=== PATIENT | female | born 1990 | race Caucasian/White ===

== ENCOUNTER → 2016-09-08 | Outpatient (CLI) | payer BC | LOC: BMCIMAGING 15:39 | PROVIDERS: ATTEND Emergency Medicine | DX: R50.9 Fever, unspecified (principal); R05 Cough ==

== ENCOUNTER 2016-09-20 04:38 | Emergency (ER) | payer BC ==
[2016-09-20 04:43] VITALS: RESP 18
[2016-09-20] MEDS ORDERED: NS 1,000 ML IV ONE ×2 (04:57→07:31)
[2016-09-20] MEDS ORDERED: ONDANSETRON 4 MG/2 ML VIAL IVP ONE ×2 (04:57→07:31)
--- NOTE | 2016-09-20 04:57 | EDPHY ---
H & P Stated Complaint: NVD since x3 days, denies abd pain; on immunosuppressants HPI/ROS: HPI CHIEF COMPLAINT: NAUSEA, VOMITING, DIARRHEA HISTORY OF PRESENT ILLNESS: This patient very pleasant 26-year-old female, significant past medical history for rheumatoid arthritis, Pott's disease, and Beto-Danlos, presents emergency room with 3 days of nausea, vomiting, diarrhea. She describes her vomiting is nonbilious nonbloody, describes her diarrhea as non bloody watery. No fever no abdominal pain. 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 She tells me she came to the emergency room this morning as she is having ongoing nausea vomiting she denies chest pain or shortness of breath. States she had diarrhea today. She feels as if she is getting dehydrated cannot tolerate p. o. is requesting IV fluids. Denies fever. 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 Exam Constitutional triage nursing summary reviewed, vital signs reviewed, awake/ alert. Eyes normal conjunctivae and sclera, EOMI, PERRLA. HENT normal inspection, atraumatic, moist mucus membranes, no epistaxis, neck supple/ no meningismus, no raccoon eyes. Respiratory clear to auscultation bilaterally, normal breath sounds, no respiratory distress, no wheezing. Cardiovascular rate normal, regular rhythm, no murmur, no edema, distal pulses normal. Gastrointestinal soft, non-tender, no rebound, no guarding, normal bowel sounds, no distension, no pulsatile mass. Genitourinary no CVA tenderness. Musculoskeletal no midline vertebral tenderness, full range of motion, no calf swelling, no tenderness of extremities, no meningismus, good pulses, neurovascularly intact. Skin pink, warm, & dry, no rash, skin atraumatic. Neurologic awake, alert and oriented x 3, AAOx3, moves all 4 extremities equally, motor intact, sensory intact, CN II-XII intact, normal cerebellar, normal vision, normal speech. Psychiatric normal mood/affect. Heme/Lymph/Immune no lymphadenopathy. Differential Diagnosis: includes but is not limited to in a particular order dehydration, electrolyte abnormality, acute nausea vomiting and diarrhea, dehydration Medical Decision Making: plan for this patient is to have an IV established obtain fluid bolus, IV Zofran for nausea control will check abdominal blood work including CBC, LFTs, lipase, urinalysis and test. And re- evaluate after fluids and nausea medicine.If she could provide a stool sample will send stool. Re-evaluation: 0633: patient here in emergency room does feel better after IV Zofran, IV fluids, IV Ativan. Her nausea is well controlled. She denies chest pain or shortness of breath. She has not had any vomiting here. Blood work is reassuring. Specifically electrolytes appropriate no high white count, urinalysis clean. She has no abdominal pain chest pain or shortness of breath. Her abdomen is benign. She is agreeable and discharged. I have given her prescription for Phenergan. She understands this medication can make her sleepy. She did p.o. challenge with a glass of water without vomiting. 0737: this patient attempted to p.o. challenge again and states that she felt very nauseous and vomited. She is requesting another L fluid more Zofran. I have ordered her 1 more L and 4 mg Zofran she will then p. o. challenge after this and does well she may go home. If she feels p.o. challenge need to be admitted to the hospital. Source: Patient - Personal History LMP (Females 10-55): 8-14 Days Ago Current Tetanus/Diphtheria Vaccine: Yes Current Tetanus Diphtheria and Acellular Pertussis (TDAP): Yes Tetanus Vaccine Date: <10 years - Medical/Surgical History Hx Asthma: No Hx Chronic Respiratory Disease: No Hx Diabetes: No Hx Cardiac Disease: No Hx Renal Disease: No Hx Cirrhosis: No Hx Alcoholism: No Hx HIV/AIDS: No Hx Splenectomy or Spleen Trauma: No Other PMH: Depression, PTSD, abd surg (double ureter repaired), postural orthostatic tachycardia synd, Beto-Danlos, PCOS, hypothyroid, migraines, RA, nerve surgery R wrist. - Social History Smoking Status: Never smoked Constitutional: Initial Vital Signs Temperature (C) 36.7 C 09/20/16 04:41 Heart Rate 91 09/20/16 04:41 Respiratory Rate 18 09/20/16 04:41 Blood Pressure 122/74 H 09/20/16 04:41 O2 Sat (%) 94 09/20/16 04:41 O2 Delivery Mode Room Air Allergies/Adverse Reactions: metformin Allergy (Verified 09/20/16 04:45) Vomiting Home Medications: Medication Instructions Recorded Thyroid,Pork [ARMOUR THYROID] 90 mg PO DAILY 05/07/12 lamOTRIGine [Lamictal] 200 mg PO HS 10/21/13 Acet/Caffeine/Buta Fioricet 2 tab PO Q6H PRN 12/04/14 [Fioricet (*)] Diclofenac Sodium [Voltaren 75 MG 75 mg PO BID 12/04/14 (*)] Haloperidol [Haldol 1 MG (*)] 4 - 6 mg PO Q4-6PRN PRN 12/04/14 LORazepam [Ativan (*)] 1 mg PO BID 12/04/14 Omeprazole Magnesium [Prilosec Otc] 20 mg PO DAILY 12/04/14 Ondansetron Odt [Zofran Odt 4 mg 4 mg PO BID 12/04/14 (*)] Prazosin HCl [Minipress 5mg (*)] 5 mg PO HS 12/04/14 Tocilizumab [ACTEMRA] 162 mg IV Q7D 12/04/14 Methotrexate Sodium [Trexall] 10 mg PO Q7D 03/22/16 Cholecalciferol Vit D3 [Vitamin D3 2,000 units PO DAILY 03/24/16 (*)] Cholecalciferol Vit D3 [Vitamin D3 50,000 unit PO TUTH 03/24/16 (*)] LORazepam [Ativan (*)] 1 mg PO DAILY PRN 03/24/16 Levomefolate/Algal Oil 1 cap PO DAILY 03/24/16 [[place]-Algal Oil 15 mg Capsule] Loratadine [Claritin 10 mg] 10 mg PO HS 03/24/16 [place]-3 Fatty Acids [Fish Oil 1000 2,000 mg PO DAILY 03/24/16 mg (*)] Ondansetron Odt [Zofran Odt 4 mg 4 mg PO Q4 PRN 03/24/16 (*)] Prazosin HCl [Minipress 1mg (*)] 1 mg PO HS 03/24/16 diphenhydrAMINE [Benadryl 50 MG 50 mg PO DAILY PRN 03/24/16 (*)] lamOTRIGine [Lamictal] 150 mg PO HS 03/24/16 Loperamide HCl [Imodium 2 mg (*)] 2 mg PO QID PRN #0 cap 04/02/16 Ondansetron HCl [Zofran] 4 mg PO Q4-6PRN PRN #10 tablet 09/20/16 Promethazine HCl [Phenergan 12.5mg 12.5 mg PO BID #10 tablet 09/20/16 tab] Medical Decision Making - Data Points Laboratory Results: Laboratory Results 09/20/16 05:09 09/20/16 05:09 09/20/16 05:09 Smear Review By Urbano ALVARES MD Medications Given: Discontinued Medications Sodium Chloride (Ns) 1,000 mls @ 0 mls/hr IV ONCE ONE PRN Reason: Wide Open Stop: 09/20/16 04:58 Last Admin: 09/20/16 05:12 Dose: 1,000 mls Sodium Chloride (Ns) 1,000 mls @ 0 mls/hr IV ONCE ONE PRN Reason: Wide Open Stop: 09/20/16 07:32 Last Admin: 09/20/16 07:37 Dose: 1,000 mls Lorazepam (Ativan Injection) 0.5 mg IVP EDNOW ONE Stop: 09/20/16 05:39 Last Admin: 09/20/16 05:45 Dose: 0.5 mg Lorazepam (Ativan Injection) 1 mg IVP EDNOW ONE Stop: 09/20/16 06:15 Last Admin: 09/20/16 06:13 Dose: 1 mg Ondansetron HCl (Zofran) 4 mg IVP EDNOW ONE Stop: 09/20/16 04:58 Last Admin: 09/20/16 05:15 Dose: 4 mg Ondansetron HCl (Zofran) 4 mg IVP EDNOW ONE Stop: 09/20/16 07:32 Last Admin: 09/20/16 07:34 Dose: 4 mg Promethazine HCl (Phenergan Rectal) 12.5 mg LA EDNOW ONE Stop: 09/20/16 08:02 Last Admin: 03/11/17 08:12 Dose: 12.5 mg Departure - Departure Disposition: Home, Routine, Self-Care Clinical Impression: Vomiting and diarrhea Condition: Good Instructions: Acute Nausea and Vomiting (ED), Acute Diarrhea (ED) Additional Instructions: 1. return emergency room if develops any worsening symptoms includes he developed abdominal pain, fever and persistent vomiting. 2.Please advance her diet very slowly clear fluids next 24 hours. Referrals: Odessa Vázquez MD [Primary Care Provider] - As per Instructions Prescriptions: Ondansetron HCl [Zofran] 4 mg PO Q4-6PRN PRN #10 tablet PRN Reason: Nausea/Vomiting, Use 1st Promethazine HCl [Phenergan 12.5mg tab] 12.5 mg PO BID #10 tablet
[2016-09-20 05:22] LABS: ADD DIFF? YES; ADD MORPH? NO; ADD SCAN? NO; ATYPICAL LYMPHOCYTE FLAG 50 (0-99); FRAGMENT RBC FLAG 0 (0-99); HEMATOCRIT 40.7 % (38.0-47.0); HEMOGLOBIN 14.1 g/dL (12.6-16.3); LEFT SHIFT FLG 0 (0-99); LIPEMIA HEMOLYSIS FLAG 90 (0-99); MEAN CELL HEMOGLOBIN 31.3 pg (27.9-34.1); MEAN CELL HEMOGLOBIN CONCENTR. 34.6 g/dL (32.4-36.7); MEAN CELL VOLUME 90.4 fL (81.5-99.8); MEAN PLATELET VOLUME 9.8 fL (8.7-11.7); PLATELET CLUMPS FLAG 10 (0-99); PLATELET COUNT 188 10^3/uL (150-400); RED CELL DISTRIBUTION WIDTH 11.7 % (11.5-15.2)
[2016-09-20] MEDS ORDERED: LORazepam 2 MG/ML INJ IVP ONE ×2 (05:38→06:14)
[2016-09-20 05:49] LABS: COLOR YELLOW; LEUKOCYTE ESTERASE,URINE NEGATIVE (NEGATIVE); NITRITE,URINE NEGATIVE (NEGATIVE)
[2016-09-20 06:08] LABS: PLATELET ESTIMATE ADEQUATE (ADEQ)
[2016-09-20] MEDS ORDERED: LORazepam 2 MG/ML INJ ONE (06:09)
[2016-09-20 06:26] LABS: ALANINE AMINOTRANSFERASE 48 IU/L (9-52); ALBUMIN 4.4 g/dL (3.5-5.0); ALKALINE PHOSPHATASE 41 IU/L (38-126); ANION GAP 13 mEq/L (8-16); ASPARTATE AMINOTRANSFERASE 36 IU/L (14-46); BILIRUBIN,TOTAL 0.9 mg/dL (0.1-1.4); BILIRUBIN-CONJUGATED 0.4 mg/dL (0.0-0.5); BILIRUBIN-UNCONJUGATED 0.5 mg/dL (0.0-1.1); CARBON DIOXIDE 22 mEq/l (22-31); CHLORIDE 104 mEq/L (97-110); CREATININE 0.7 mg/dL (0.6-1.0); GLOMERULAR FILTRATION RATE > 60; GLUCOSE 88 mg/dL (70-100); SODIUM 139 mEq/L (134-144); TOTAL PROTEIN 7.2 g/dL (6.3-8.2)
[2016-09-20] MEDS ORDERED: ONDANSETRON 4 MG/2 ML VIAL ONE (07:30)
[2016-09-20] MEDS ORDERED: PROMETHAZINE HCL 12.5 MG SUPPR PR ONE (08:01)
[2016-09-20 08:16] VITALS: PULSE 82; TEMP 98.4
[2016-09-20 08:54] VITALS: BP 117/93; O2SAT 96
== END 2016-09-20 08:53 | disposition home or self-care (01) ==
DX: R19.7 Diarrhea, unspecified (principal); R11.10 Vomiting, unspecified
CPT/HCPCS: 96374; J2405

== ENCOUNTER → 2016-10-07 | Outpatient (CLI) | payer BC | LOC: BMCIMAGING 10:24 | PROVIDERS: ATTEND Physician Assistant | DX: S69.91XA Unspecified injury of right wrist, hand and finger(s), initial encounter (principal); W19.XXXA Unspecified fall, initial encounter ==

== ENCOUNTER 2017-01-16 21:19 | Emergency (ER) | payer BC, OTHER ==
[2017-01-16 21:31] VITALS: BP 138/99; PULSE 92; RESP 16; TEMP 98.4; O2SAT 97
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
== END 2017-01-17 04:10 | disposition home or self-care (01) ==
LOC: EEVIPCON 21:19
DX: T74.21XA Adult sexual abuse, confirmed, initial encounter (principal); Y07.9 Unspecified perpetrator of maltreatment and neglect

== ENCOUNTER 2017-02-05 07:37 | Inpatient (IN) | payer BC ==
--- NOTE | 2017-02-05 07:45 | EDPHY ---
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 She thinks might have got sick from 1 of her kids. 2 days ago she started having some loose stool and diarrhea without blood or melena. Last night at 11:00 p.m. started having multiple episodes of nausea and vomiting. Symptoms severe. Unable to keep her usual medications down. Not associated with significant abdominal pain or fever. No recent foreign travel. REVIEW OF SYSTEMS: Eye: no change in vision ENT: no sore throat Cardiac: no chest pain or syncope Pulmonary: no cough or SOB Abdomen: HPI Musculoskeletal: no back pain Skin: no rash Neuro: no headache, her migraines are well controlled at this point in time Constitutional: no fever : no urinary symptoms or vaginal bleeding A comprehensive 10 point review of systems is otherwise negative aside from elements mentioned in the history of present illness. PAST MEDICAL HISTORY: Admission history and physical dated 03/21/[address] Gilliland personally reviewed. Emergency department visit dated 09/20/[address] De La Cruz personally reviewed. Includes migraine headaches, orthostatic hypotension syndrome, polycystic ovarian syndrome. PTSD and depression. Postural orthostatic tachycardia syndrome, arthritis, right wrist nerve surgery, ureter surgery. Social history: No alcohol General Appearance: Alert and conversant, cooperative. Eyes: No scleral icterus. ENT, Mouth: Dry mucous membranes Respiratory: Normal respiratory effort, breath sounds equal, lungs are clear to auscultation. Cardiovascular: Regular rate and rhythm. Gastrointestinal: Abdomen is soft and non tender. No tenderness over McBurney' s point. Neurological: Alert and oriented x3. Normally conversant. Face symmetric, normal movement and sensation in all extremities. Skin: Warm and dry, no rashes. Musculoskeletal: No peripheral edema and no joint swelling. Psychiatric: Not agitated. Emergency Department course/MDM: Patient presents with nausea and vomiting and a benign abdominal exam but is clinically dehydrated. She says that IV Zofran typically works well for her. Haloperidol is on her medication list but is a p.r.n. and she has not taken it recently. Zofran 4 mg IV, electrolytes and test, 2 L IV normal saline. 830: Results discussed, still has some nausea, requesting Phenergan IV which is ordered 12.5 mg. 1235: Additional nausea, Phenergan 12.5 mg IV. 1332: Still symptomatic, admit to hospitalist service. 1420: 10 mg IV Reglan. Smoking Status: Never smoked Constitutional: Initial Vital Signs Temperature (C) 36.9 C 02/05/17 07:41 Heart Rate 109 H 02/05/17 07:41 Respiratory Rate 15 02/05/17 07:41 Blood Pressure 113/89 H 02/05/17 07:41 O2 Sat (%) 94 02/05/17 07:41 O2 Delivery Mode Room Air Allergies/Adverse Reactions: metformin Allergy (Verified 02/05/17 07:40) Vomiting Home Medications: Medication Instructions Recorded lamoTRIgine [Lamictal] 200 mg PO HS 10/21/13 Acet/Caffeine/Buta Fioricet 2 tab PO Q6H PRN 12/04/14 [Fioricet (*)] Diclofenac Sodium [Voltaren 75 MG 75 mg PO BID PRN 12/04/14 (*)] Haloperidol [Haldol 1 MG (*)] 4 - 6 mg PO DAILY PRN 12/04/14 Omeprazole Magnesium [Prilosec Otc] 20 mg PO DAILY 12/04/14 Prazosin HCl [Minipress 5mg (*)] 5 mg PO HS 12/04/14 Tocilizumab [ACTEMRA] 162 mg IV HOPE 12/04/14 LORazepam [Ativan (*)] 1 mg PO TID PRN 03/24/16 Levomefolate/Algal Oil 1 cap PO DAILY 03/24/16 [[place]-Algal Oil 15 mg Capsule] Loratadine [Claritin 10 mg] 10 mg PO HS 03/24/16 diphenhydrAMINE [Benadryl 50 MG 50 mg PO DAILY PRN 03/24/16 (*)] lamoTRIgine [Lamictal] 150 mg PO HS 03/24/16 Ergocalciferol [Vitamin D2 (*)] 50,000 unit PO TUTH 02/05/17 Levothyroxine [Synthroid 100 mcg 100 mcg PO DAILY06 02/05/17 (*)] Ondansetron Odt [Zofran Odt 4 mg 4 mg PO DAILY PRN 02/05/17 (*)] Prazosin HCl [Minipress] 2 mg PO HS 02/05/17 traMADol [Ultram 50 mg (*)] 50 - 100 mg PO Q6HRS PRN 02/05/17 Medical Decision Making Differential Diagnosis: Differential considered including but not limited to appendicitis, UTI, PID, ectopic, gastroenteritis. - Data Points Laboratory Results: Laboratory Results 02/05/17 07:50 02/05/17 07:50 02/05/17 02/05/17 02/05/17 07:50 07:50 07:50 WBC 11.91 10^3/uL H 10^3/uL (3.80-9.50) RBC 4.83 10^6/uL 10^6/uL (4.18-5.33) Hgb 15.2 g/dL g/dL (12.6-16.3) Hct 43.6 % % (38.0-47.0) MCV 90.3 fL fL (81.5-99.8) MCH 31.5 pg pg (27.9-34.1) MCHC 34.9 g/dL g/dL (32.4-36.7) RDW 11.4 % L % (11.5-15.2) Plt Count 208 10^3/uL 10^3/uL (150-400) MPV 9.8 fL fL (8.7-11.7) Neut % (Auto) 90.1 % H % (39.3-74.2) Lymph % (Auto) 3.8 % L % (15.0-45.0) [place] % (Auto) 4.8 % % (4.5-13.0) Eos % (Auto) 0.7 % % (0.6-7.6) Baso % (Auto) 0.3 % % (0.3-1.7) Nucleat RBC Rel Count 0.0 % % (0.0-0.2) Absolute Neuts (auto) 10.74 10^3/uL H 10^3/uL (1.70-6.50) Absolute Lymphs (auto) 0.45 10^3/uL L 10^3/uL (1.00-3.00) Absolute Monos (auto) 0.57 10^3/uL 10^3/uL (0.30-0.80) Absolute Eos (auto) 0.08 10^3/uL 10^3/uL (0.03-0.40) Absolute Basos (auto) 0.04 10^3/uL 10^3/uL (0.02-0.10) Absolute Nucleated RBC 0.00 10^3/uL 10^3/uL (0-0.01) Immature Gran % 0.3 % % (0.0-1.1) Immature Gran # 0.03 10^3/uL 10^3/uL (0.00-0.10) Sodium 143 mEq/L mEq/L (134-144) Potassium 4.1 mEq/L mEq/L (3.5-5.2) Chloride 107 mEq/L mEq/L (97-110) Carbon Dioxide 19 mEq/l L mEq/l (22-31) Anion Gap 17 mEq/L H mEq/L (8-16) BUN 14 mg/dL mg/dL (7-23) Creatinine 0.7 mg/dL mg/dL (0.6-1.0) Estimated GFR > 60 Glucose 123 mg/dL H mg/dL (70-100) Calcium 9.5 mg/dL mg/dL (8.5-10.4) Beta HCG, Qual NEGATIVE Medications Given: Discontinued Medications Sodium Chloride (Ns) 1,000 mls @ 0 mls/hr IV EDNOW ONE; Wide Open PRN Reason: Protocol Stop: 02/05/17 07:51 Last Admin: 02/05/17 08:05 Dose: 1,000 mls Sodium Chloride (Ns) 1,000 mls @ 0 mls/hr IV EDNOW ONE; Wide Open PRN Reason: Protocol Stop: 02/05/17 07:51 Last Admin: 02/05/17 09:02 Dose: 1,000 mls Metoclopramide HCl (Reglan Injection) 10 mg IVP EDNOW ONE Stop: 02/05/17 14:21 Last Admin: 02/05/17 14:57 Dose: 10 mg Ondansetron HCl (Zofran) 4 mg IVP EDNOW ONE Stop: 02/05/17 07:51 Last Admin: 02/05/17 08:05 Dose: 4 mg Promethazine HCl (Phenergan) 12.5 mg IVP EDNOW ONE Stop: 02/05/17 08:33 Last Admin: 07/27/17 08:36 Dose: 12.5 mg Promethazine HCl (Phenergan) 12.5 mg IVP EDNOW ONE Stop: 02/05/17 12:37 Last Admin: 02/05/17 12:40 Dose: 12.5 mg Departure - Departure Disposition: [facility] Acute Clinical Impression: Dehydration, Vomiting and diarrhea Condition: Good
[2017-02-05] MEDS ORDERED: NS 1,000 ML IV ONE ×2 (07:50)
[2017-02-05] MEDS ORDERED: ONDANSETRON 4 MG/2 ML VIAL IVP ONE (07:50)
[2017-02-05 08:06] LABS: % IMMATURE GRANULYOCYTES 0.3 % (0.0-1.1); ABSOLUTE IMMATURE GRANULOCYTES 0.03 10^3/uL (0.00-0.10); ADD DIFF? NO; ADD MORPH? NO; ADD SCAN? NO; ATYPICAL LYMPHOCYTE FLAG 0 (0-99); FRAGMENT RBC FLAG 0 (0-99); HEMATOCRIT 43.6 % (38.0-47.0); HEMOGLOBIN 15.2 g/dL (12.6-16.3); LEFT SHIFT FLG 0 (0-99); LIPEMIA HEMOLYSIS FLAG 90 (0-99); MEAN CELL HEMOGLOBIN 31.5 pg (27.9-34.1); MEAN CELL HEMOGLOBIN CONCENTR. 34.9 g/dL (32.4-36.7); MEAN CELL VOLUME 90.3 fL (81.5-99.8); MEAN PLATELET VOLUME 9.8 fL (8.7-11.7); PLATELET CLUMPS FLAG 0 (0-99); PLATELET COUNT 208 10^3/uL (150-400); RED BLOOD CELL COUNT 4.83 10^6/uL (4.18-5.33); RED CELL DISTRIBUTION WIDTH 11.4 % (11.5-15.2)
[2017-02-05 08:26] LABS: ANION GAP 17 mEq/L (8-16); CALCIUM 9.5 mg/dL (8.5-10.4); CARBON DIOXIDE 19 mEq/l (22-31); CHLORIDE 107 mEq/L (97-110); CREATININE 0.7 mg/dL (0.6-1.0); GLOMERULAR FILTRATION RATE > 60; GLUCOSE 123 mg/dL (70-100); POTASSIUM 4.1 mEq/L (3.5-5.2); SODIUM 143 mEq/L (134-144)
[2017-02-05] MEDS ORDERED: PROMETHAZINE HCL 25 MG/ML INJ IVP ONE ×2 (08:32→12:36)
[2017-02-05] MEDS ORDERED: METOCLOPRAMIDE 10 MG/2 ML VIAL IVP ONE (14:20)
[2017-02-05] MEDS ORDERED: ONDANSETRON DISINTEGRATING 4 MG TAB PO PRN (16:19)
[2017-02-05] MEDS ORDERED: ACETAMINOPHEN 325 MG TAB PO PRN (16:19)
[2017-02-05] MEDS ORDERED: diphenhydrAMINE 50 MG CAP PO PRN (16:25)
[2017-02-05] MEDS ORDERED: NON-FORMULARY NEW DRUG (Omeprazole Magnesium [Prilosec Otc] 20 MG) PO SCH (16:30)
[2017-02-05] MEDS: NS 1,000 ML IV SCH (16:56)
[2017-02-05 17:11] LABS: ALBUMIN 4.4 g/dL (3.5-5.0); BILIRUBIN-CONJUGATED 0.2 mg/dL (0.0-0.5); BILIRUBIN-UNCONJUGATED 0.8 mg/dL (0.0-1.1); MAGNESIUM 1.6 mg/dL (1.6-2.3); TOTAL PROTEIN 7.9 g/dL (6.3-8.2)
[2017-02-05] MEDS: PROMETHAZINE HCL 25 MG/ML INJ IVP PRN (17:46)
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
[2017-02-05] MEDS ORDERED: NON-FORMULARY NEW DRUG (Lamotrigine [Lamictal] 150 MG) PO SCH (21:00)
[2017-02-05] MEDS ORDERED: PRAZOSIN HCL 2 MG PO SCH (21:00)
[2017-02-05] MEDS ORDERED: NON-FORMULARY NEW DRUG (Loratadine [Claritin 10 Mg] 10 MG) PO SCH (21:00)
[2017-02-05] MEDS ORDERED: lamoTRIgine 100 MG TAB PO SCH (21:00)
[2017-02-05] MEDS ORDERED: NON-FORMULARY NEW DRUG (Lamotrigine [Lamictal] 200 MG) PO SCH (21:00)
[2017-02-05] MEDS: lamoTRIgine 100 MG TAB PO SCH (21:38)
[2017-02-05] MEDS: traMADol 50 MG TAB PO PRN (21:39)
[2017-02-05] MEDS: PRAZOSIN HCL 5 MG CAP PO SCH (21:40)
[2017-02-05] MEDS: CETIRIZINE 10 MG TAB PO SCH (21:40)
[2017-02-05] MEDS: PRAZOSIN HCL 1 MG CAP PO SCH (21:40)
[2017-02-06] MEDS: PROMETHAZINE HCL 25 MG/ML INJ IVP PRN ×4 (02:27→20:55)
[2017-02-06] MEDS: NS 1,000 ML IV SCH ×2 (02:27→12:59)
[2017-02-06 04:49] LABS: % IMMATURE GRANULYOCYTES 0.6 % (0.0-1.1); ABSOLUTE IMMATURE GRANULOCYTES 0.02 10^3/uL (0.00-0.10); ADD DIFF? NO; ADD MORPH? NO; ADD SCAN? NO; ATYPICAL LYMPHOCYTE FLAG 0 (0-99); FRAGMENT RBC FLAG 0 (0-99); HEMATOCRIT 35.4 % (38.0-47.0); HEMOGLOBIN 12.1 g/dL (12.6-16.3); LEFT SHIFT FLG 10 (0-99); LIPEMIA HEMOLYSIS FLAG 90 (0-99); MEAN CELL HEMOGLOBIN 31.7 pg (27.9-34.1); MEAN CELL HEMOGLOBIN CONCENTR. 34.2 g/dL (32.4-36.7); MEAN CELL VOLUME 92.7 fL (81.5-99.8); MEAN PLATELET VOLUME 9.7 fL (8.7-11.7); PLATELET CLUMPS FLAG 0 (0-99); PLATELET COUNT 162 10^3/uL (150-400); RED BLOOD CELL COUNT 3.82 10^6/uL (4.18-5.33); RED CELL DISTRIBUTION WIDTH 11.7 % (11.5-15.2)
[2017-02-06 05:17] LABS: ANION GAP 9 mEq/L (8-16); CALCIUM 8.2 mg/dL (8.5-10.4); CARBON DIOXIDE 20 mEq/l (22-31); CHLORIDE 111 mEq/L (97-110); CREATININE 0.7 mg/dL (0.6-1.0); GLOMERULAR FILTRATION RATE > 60; GLUCOSE 82 mg/dL (70-100); POTASSIUM 3.6 mEq/L (3.5-5.2); SODIUM 140 mEq/L (134-144)
[2017-02-06] MEDS: LEVOTHYROXINE 100 MCG TAB PO SCH (05:17)
[2017-02-06] MEDS: traMADol 50 MG TAB PO PRN (07:38)
[2017-02-06] MEDS: PANTOPRAZOLE SODIUM 40 MG TAB PO SCH (07:38)
[2017-02-06] MEDS ORDERED: ACET/CAFFEINE/BUTA FIORICET 1 EACH TAB PO PRN (09:36)
[2017-02-06] MEDS: LORazepam 1 MG TAB PO PRN ×2 (12:56→18:39)
[2017-02-06] MEDS: ONDANSETRON 4 MG/2 ML VIAL IVP PRN (12:57)
[2017-02-06] MEDS ORDERED: ALTEPLASE 2 MG VIAL IVP PRN (18:17)
--- NOTE | 2017-02-06 18:17 | HOSPPROG ---
Hospitalist Progress Note Assessment/Plan: 26-year-old admitted with intractable nausea and vomiting. She has several medical problems including pot syndrome, PTSD, ovarian cysts, patient is new to me today. - Intractable nausea and vomiting. Patient improved slightly in the morning and then reported persistent nausea despite the use of Phenergan and said even water was causing abdominal burning. I have increased her PPI medication placed her NPO except for ice chips and sips of water and essentially put at bowel rest. Due to the persistence of the problem a 2 way abdomen has been ordered. - metabolic acidosis: This is improved with IV hydration. - Leukocytosis: Again this is slowly improving. There is no active signs of infection. Plan: 2 way abdomen continue IV hydration and p. o. and increase pain medication as needed. A PICC line will be ordered as the Phenergan is eliminating IV access. Subjective: Reports the nausea is persistent despite the use of Phenergan. Objective: Vital Signs Temp Pulse Resp BP Pulse Ox 36.9 C 69 18 128/68 H 93 02/06/17 16:00 02/06/17 16:00 02/06/17 16:00 02/06/17 16:00 02/06/17 16:00 Laboratory Results 02/06/17 04:24 02/06/17 04:24 02/05/17 02/06/17 02/07/17 05:59 05:59 05:59 Intake Total 2861 1425 Output Total 300 Balance 2861 1125 - Time Spent With Patient Time Spent with Patient: greater than 35 minutes Time Spent with Patient: Greater than 35 minutes spent on this patients care, greater than 50% of time spent counseling, educating, and coordinating care regarding the above mentioned plan. - Pending Discharge Pending Discharge Within 24 Hours: No Pending Discharge Within 48 Hours: No - Physical Exam Constitutional: no apparent distress, other ( Appears only mildly uncomfortable ) Eyes: PERRL, anicteric sclera Ears, Nose, Mouth, Throat: moist mucous membranes Cardiovascular: regular rate and rhythym, no murmur, rub, or gallop Respiratory: no respiratory distress, no rales or rhonchi Gastrointestinal: other ( significantly overweight to obese with normoactive bowel sounds. There is epigastric tenderness but no right upper quadrant tenderness. There is no rebound or voluntary guarding. There is also tenderness in the suprapubic region.) Genitourinary: no bladder fullness Skin: warm Musculoskeletal: full muscle strength Neurologic: AAOx3, CN II-XII Intact Psychiatric: interacting appropriately ICD10 Worksheet Patient Problems: Problems Problem Status Onset Concussion Acute Migraine Acute Status migrainosus Acute Vomiting and diarrhea Acute Dehydration Acute Vomiting and diarrhea Acute
[2017-02-06] MEDS: PRAZOSIN HCL 5 MG CAP PO SCH (20:55)
[2017-02-06] MEDS: PRAZOSIN HCL 1 MG CAP PO SCH (20:55)
[2017-02-06] MEDS: CETIRIZINE 10 MG TAB PO SCH (20:55)
[2017-02-06] MEDS: lamoTRIgine 100 MG TAB PO SCH (20:56)
[2017-02-06 22:02] LABS: COLOR PALE YELLOW; LEUKOCYTE ESTERASE,URINE NEGATIVE (NEGATIVE); NITRITE,URINE NEGATIVE (NEGATIVE)
[2017-02-06 22:04] LABS: BACTERIA TRACE /hpf (NONE SEEN)
[2017-02-07] MEDS: NS 1,000 ML IV SCH ×3 (03:40→23:36)
[2017-02-07] MEDS: LEVOTHYROXINE 100 MCG TAB PO SCH (06:01)
[2017-02-07] MEDS: PANTOPRAZOLE SODIUM 40 MG TAB PO SCH (08:38)
[2017-02-07] MEDS: PROMETHAZINE HCL 25 MG/ML INJ IVP PRN ×3 (08:44→21:54)
[2017-02-07] MEDS: MAG HYDROX/AL HYDROX/SIMETH 30 ML UDCUP PO PRN ×2 (12:29→18:17)
[2017-02-07] MEDS: ONDANSETRON 4 MG/2 ML VIAL IVP PRN (12:57)
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
[2017-02-07] MEDS: PRAZOSIN HCL 1 MG CAP PO SCH (20:45)
[2017-02-07] MEDS: PRAZOSIN HCL 5 MG CAP PO SCH (20:45)
[2017-02-07] MEDS: CETIRIZINE 10 MG TAB PO SCH (20:46)
[2017-02-07] MEDS: lamoTRIgine 100 MG TAB PO SCH (20:46)
[2017-02-07] MEDS: traMADol 50 MG TAB PO PRN (21:54)
[2017-02-08] MEDS: LEVOTHYROXINE 100 MCG TAB PO SCH (05:02)
[2017-02-08 05:18] LABS: HEMATOCRIT 34.9 % (38.0-47.0); HEMOGLOBIN 11.6 g/dL (12.6-16.3); MEAN CELL HEMOGLOBIN 31.2 pg (27.9-34.1); MEAN CELL HEMOGLOBIN CONCENTR. 33.2 g/dL (32.4-36.7); MEAN CELL VOLUME 93.8 fL (81.5-99.8); RED BLOOD CELL COUNT 3.72 10^6/uL (4.18-5.33); RED CELL DISTRIBUTION WIDTH 11.6 % (11.5-15.2)
[2017-02-08 05:42] LABS: ANION GAP 5 mEq/L (8-16); CALCIUM 8.5 mg/dL (8.5-10.4); CARBON DIOXIDE 26 mEq/l (22-31); CHLORIDE 107 mEq/L (97-110); CREATININE 0.8 mg/dL (0.6-1.0); GLOMERULAR FILTRATION RATE > 60; GLUCOSE 88 mg/dL (70-100); POTASSIUM 3.8 mEq/L (3.5-5.2); SODIUM 138 mEq/L (134-144)
[2017-02-08 07:53] VITALS: BP 105/56; PULSE 58; RESP 18; TEMP 98.1; O2SAT 92
[2017-02-08] MEDS: PROMETHAZINE HCL 25 MG/ML INJ IVP PRN (08:11)
[2017-02-08] MEDS: PANTOPRAZOLE SODIUM 40 MG TAB PO SCH (08:11)
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
[2017-02-08] MEDS: NS 1,000 ML IV SCH (09:35)
--- NOTE | 2017-02-08 11:04 | CPEKG ---
Heart Rate: 56 RR Interval: 1071 P-R Interval: 140 QRSD Interval: 80 QT Interval: 448 QTC Interval: 433 P Rippey: 10 QRS Rippey: 39 T Wave Rippey: 51 EKG Severity - NORMAL ECG - EKG Impression: SINUS RHYTHM Electronically Signed By: Bienvenido Strauss 09-Feb-2017 17:30:25
[2017-02-08] MEDS: MAG HYDROX/AL HYDROX/SIMETH 30 ML UDCUP PO PRN (11:23)
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
== END 2017-02-08 13:39 | disposition home or self-care (01) | DRG 392 ==
LOC: F3E 15:05 → OBSVTOIN 02-06 17:00
PROVIDERS: ADMIT Hospitalist; ATTEND Hospitalist
PROC: 02HV33Z Insertion of Infusion Device into Superior Vena Cava, Percutaneous Approach (ICD-10-PCS; principal; 2017-02-06)
DX: A08.39 Other viral enteritis (principal); E86.0 Dehydration; M06.9 Rheumatoid arthritis, unspecified; Z79.899 Other long term (current) drug therapy; E28.2 Polycystic ovarian syndrome; Q79.6 Ehlers-Danlos syndromes; F43.12 Post-traumatic stress disorder, chronic; F32.9 Major depressive disorder, single episode, unspecified; F39 Unspecified mood [affective] disorder; I95.1 Orthostatic hypotension
CPT/HCPCS: 96374; C1751; G0378; J2405; J2550; J2765

== ENCOUNTER → 2017-04-22 | Outpatient (CLI) | payer BC | LOC: BMCIMAGING 08:46 | PROVIDERS: ATTEND Internal Medicine Rheumatology | DX: R22.42 Localized swelling, mass and lump, left lower limb (principal) ==

== ENCOUNTER → 2017-09-23 | Outpatient (CLI) | payer BC | LOC: BMCIMAGING 10:37 | PROVIDERS: ATTEND Physician Assistant | DX: M25.512 Pain in left shoulder (principal); M25.522 Pain in left elbow ==

== ENCOUNTER 2018-03-05 22:08 | Emergency (ER) | payer BC ==
[2018-03-05] MEDS ORDERED: NS 1,000 ML IV ONE ×2 (22:25→23:40)
[2018-03-05 23:06] LABS: PLATELET COUNT 237 10^3/uL (150-400)
--- NOTE | 2018-03-05 23:24 | EDPHY ---
H & P Stated Complaint: Sent by on-call physician for IV fluids. - Diarrhea, Constipation. Time Seen by Provider: 03/05/18 22:15 HPI/ROS: Chief Complaint: Diarrhea, lightheaded HPI: 28-year-old woman with extensive medical history including pots syndrome and rheumatoid arthritis on immunosuppression. Patient has started IV ketamine treatments for her depression. These have cause constipation. Her physician for start her on Colace and then added MiraLax and prunes. She is constipated up until today. She has had multiple episodes of loose diarrhea today. She is feeling lightheaded is concerned about her hydration status. She spoke with her on-call physician who recommended she come to the emergency department for hydration and evaluation. She has had multiple episodes of dehydration requiring IV fluids in the past and has required admission and was hoping to be proactive in come in early to prevent worsening of her symptoms. No nausea or vomiting. No blood in her stool. Has had some crampy abdominal pain but this resolved with the diarrhea. No fevers or chills. Mild lightheadedness but no fainting. No chest pain or shortness of breath. ROS: 10 point Review of Systems is negative except as noted in the HPI. 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 PTSD, PCOS, depression, hypothyroid, migraines Social History: No smoking, no alcohol, no recreational drug use Family History: non-contributory Physical Exam: Gen: Awake, Alert, No Distress HEENT: Nose: no rhinorrhea Eyes: PERRLA, EOMI Mouth: Dry mucous membranes Neck: Supple, no JVD Chest: nontender, lungs clear to auscultation Heart: S1, S2 normal, no murmur Abd: Soft, non-tender, no guarding Back: no CVA tenderness, no midline tenderness Ext: no edema, non-tender Skin: no rash Neuro: CN II-XII intact, Sensation grossly intact, Strength 5/5 in bilateral upper and lower extremities - Personal History Current Tetanus/Diphtheria Vaccine: Yes Current Tetanus Diphtheria and Acellular Pertussis (TDAP): Yes Tetanus Vaccine Date: 2015 - Medical/Surgical History Hx Asthma: No Hx Chronic Respiratory Disease: No Hx Diabetes: No Hx Cardiac Disease: No Hx Renal Disease: No Hx Cirrhosis: No Hx Alcoholism: No Hx HIV/AIDS: No Hx Splenectomy or Spleen Trauma: No Other PMH: Depression, PTSD, abd surg (double ureter repaired), postural orthostatic tachycardia synd, Beto-Danlos, PCOS, hypothyroid, migraines, RA, nerve surgery R wrist. - Social History Smoking Status: Never smoked Constitutional: Initial Vital Signs Temperature (C) 36.8 C 03/05/18 22:10 Heart Rate 97 03/05/18 22:10 Respiratory Rate 16 03/05/18 22:10 Blood Pressure 113/80 03/05/18 22:10 O2 Sat (%) 99 03/05/18 22:10 O2 Delivery Mode Room Air Allergies/Adverse Reactions: gluten Allergy (Verified 02/05/17 17:05) metformin Allergy (Verified 02/05/17 07:40) Vomiting Home Medications: Medication Instructions Recorded lamoTRIgine [Lamictal] 200 mg PO HS 10/21/13 Acet/Caffeine/Buta Fioricet 2 tab PO Q6H PRN 12/04/14 [Fioricet (*)] Diclofenac Sodium [Voltaren 75 MG 75 mg PO BID PRN 12/04/14 (*)] Haloperidol [Haldol 1 MG (*)] 4 - 6 mg PO DAILY PRN 12/04/14 Omeprazole Magnesium [Prilosec Otc] 20 mg PO DAILY 12/04/14 Prazosin HCl [Minipress 5mg (*)] 5 mg PO HS 12/04/14 Tocilizumab [ACTEMRA] 162 mg IV HOPE 12/04/14 LORazepam [Ativan (*)] 1 mg PO TID PRN 03/24/16 Levomefolate/Algal Oil 1 cap PO DAILY 03/24/16 [Deplin-Algal Oil 15 mg Capsule] Loratadine [Claritin 10 mg] 10 mg PO HS 03/24/16 diphenhydrAMINE [Benadryl 50 MG 50 mg PO DAILY PRN 03/24/16 (*)] lamoTRIgine [Lamictal] 150 mg PO HS 03/24/16 Ergocalciferol [Vitamin D2 (*)] 50,000 unit PO TUTH 02/05/17 Levothyroxine [Synthroid 100 mcg 100 mcg PO DAILY06 02/05/17 (*)] Ondansetron Odt [Zofran Odt 4 mg 4 mg PO DAILY PRN 02/05/17 (*)] Prazosin HCl [Minipress] 2 mg PO HS 02/05/17 traMADol [Ultram 50 mg (*)] 50 - 100 mg PO Q6HRS PRN 02/05/17 Ondansetron Odt [Zofran Odt 4 mg 4 mg PO Q4HRS PRN #15 tab 02/08/17 (*)] Medical Decision Making ED Course/Re-evaluation: Patient is improved after IV fluids. Her blood sugars little bit elevated however the remainder of her blood work is unremarkable. She is tolerating p.o.. Will discharge with follow-up with primary care physician. - Data Points Laboratory Results: Laboratory Results 03/05/18 22:55 03/05/18 22:55 03/05/18 03/05/18 22:55 22:55 WBC 7.77 10^3/uL 10^3/uL (3.80-9.50) RBC 4.23 10^6/uL 10^6/uL (4.18-5.33) Hgb 13.3 g/dL g/dL (12.6-16.3) Hct 38.6 % % (38.0-47.0) MCV 91.3 fL fL (81.5-99.8) MCH 31.4 pg pg (27.9-34.1) MCHC 34.5 g/dL g/dL (32.4-36.7) RDW 12.2 % % (11.5-15.2) Plt Count 237 10^3/uL 10^3/uL (150-400) MPV 10.0 fL fL (8.7-11.7) Neut % (Auto) 58.2 % % (39.3-74.2) Lymph % (Auto) 31.8 % % (15.0-45.0) [place] % (Auto) 8.2 % % (4.5-13.0) Eos % (Auto) 1.0 % % (0.6-7.6) Baso % (Auto) 0.5 % % (0.3-1.7) Nucleat RBC Rel Count 0.0 % % (0.0-0.2) Absolute Neuts (auto) 4.52 10^3/uL 10^3/uL (1.70-6.50) Absolute Lymphs (auto) 2.47 10^3/uL 10^3/uL (1.00-3.00) Absolute Monos (auto) 0.64 10^3/uL 10^3/uL (0.30-0.80) Absolute Eos (auto) 0.08 10^3/uL 10^3/uL (0.03-0.40) Absolute Basos (auto) 0.04 10^3/uL 10^3/uL (0.02-0.10) Absolute Nucleated RBC 0.00 10^3/uL 10^3/uL (0-0.01) Immature Gran % 0.3 % % (0.0-1.1) Immature Gran # 0.02 10^3/uL 10^3/uL (0.00-0.10) Sodium 136 mEq/L mEq/L (135-145) Potassium 3.9 mEq/L mEq/L (3.3-5.0) Chloride 99 mEq/L mEq/L (97-110) Carbon Dioxide 26 mEq/l mEq/l (22-31) Anion Gap 11 mEq/L mEq/L (8-16) BUN 14 mg/dL mg/dL (7-23) Creatinine 0.6 mg/dL mg/dL (0.6-1.0) Estimated GFR > 60 Glucose 161 mg/dL H mg/dL (70-100) Calcium 9.8 mg/dL mg/dL (8.5-10.4) Medications Given: Discontinued Medications Sodium Chloride (Ns) 1,000 mls @ 0 mls/hr IV ONCE ONE; Wide Open PRN Reason: Protocol Stop: 03/05/18 22:26 Last Admin: 03/05/18 23:03 Dose: 1,000 mls Sodium Chloride (Ns) 1,000 mls @ 0 mls/hr IV ONCE ONE; Wide Open PRN Reason: Protocol Stop: 03/05/18 23:41 Last Admin: 03/05/18 23:45 Dose: 1,000 mls Departure - Departure Disposition: Home, Routine, Self-Care Clinical Impression: Diarrhea, Dehydration Condition: Good Instructions: Acute Diarrhea (ED), Dehydration (ED) Additional Instructions: Make sure to drink plenty of fluids. Follow up with primary care physician in 3-4 days for further evaluation. Return emergency depart for continuing diarrhea hernandez, lightheadedness, fainting , abdominal pain, or any other concerns. Referrals: Odessa Vázquez MD [Primary Care Provider] - As per Instructions
[2018-03-06 00:47] VITALS: BP 125/94
== END 2018-03-06 00:47 | disposition home or self-care (01) ==
DX: E86.0 Dehydration (principal); R19.7 Diarrhea, unspecified

== ENCOUNTER 2018-07-14 09:36 | Emergency (ER) | payer BC ==
[2018-07-14] MEDS ORDERED: NS 1,000 ML IV ONE (09:49)
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
[2018-07-14 10:20] LABS: PLATELET COUNT 238 10^3/uL (150-400)
[2018-07-14] MEDS ORDERED: ONDANSETRON 4 MG/2 ML VIAL IVP ONE (10:31)
[2018-07-14] MEDS ORDERED: MAG HYDROX/AL HYDROX/SIMETH 30 ML UDCUP PO ONE (10:52)
[2018-07-14] MEDS ORDERED: LIDOCAINE 2% VISCOUS 15 ML UDCUP PO ONE (10:52)
[2018-07-14] MEDS ORDERED: HYOSCYAMINE SULFATE 0.125 MG TAB PO ONE (10:52)
[2018-07-14] MEDS ORDERED: IOPAMIDOL (ISOVUE 370) 100 ML BTL IV ONE (11:48)
[2018-07-14 13:14] VITALS: BP 112/64
== END 2018-07-14 13:21 | disposition home or self-care (01) ==
DX: R10.9 Unspecified abdominal pain (principal); E86.9 Volume depletion, unspecified
CPT/HCPCS: 96374; J2270; Q9967

== ENCOUNTER → 2018-09-15 | Outpatient (CLI) | payer BC | LOC: BMCIMAGING 11:34 | PROVIDERS: ATTEND Physician Assistant | DX: M25.551 Pain in right hip (principal); M25.852 Other specified joint disorders, left hip ==

== ENCOUNTER → 2018-09-22 | Outpatient (CLI) | payer BC | LOC: BMCIMAGING 08:54 | PROVIDERS: ATTEND Orthopaedic Surgery | DX: M25.551 Pain in right hip (principal) ==

== ENCOUNTER → 2018-09-24 | Outpatient (CLI) | payer BC | LOC: BMCIMAGING 15:08 | PROVIDERS: ATTEND Family Medicine | DX: R06.02 Shortness of breath (principal) ==

== ENCOUNTER 2018-09-25 11:24 | Emergency (ER) | payer BC ==
[2018-09-25 12:16] LABS: PLATELET COUNT 212 10^3/uL (150-400)
--- NOTE | 2018-09-25 12:29 | EDPHY ---
H & P Stated Complaint: sob x 4 days cough--pain with breathing Time Seen by Provider: 09/25/18 11:49 HPI/ROS: CHIEF COMPLAINT: Dyspnea HISTORY OF PRESENT ILLNESS: 28-year-old female male history of rheumatoid arthritis, immunosuppressed with methotrexate, complaining of continued cough and dyspnea for the past 4 days. The patient was treated empirically for influenza as she was exposed to positive influenza 1 week ago completed a course of Tamiflu. She had chest x-ray yesterday which is negative and called her PCP today (Thursday) reporting continued dyspnea and cough, told the ER for possible PE. She denies: Abdominal pain, back pain, headache, nausea, vomiting, flu-like symptoms, chest pain. PRIMARY CARE PROVIDER: REVIEW OF SYSTEMS: 10 systems reviewed and negative with the exception of the elements mentioned in the history of present illness PAST MEDICAL & SURGICAL HISTORY: Rheumatoid arthritis. Immunosuppressed with methotrexate. Bipolar disorder. SOCIAL HISTORY:Nonsmoker PHYSICAL EXAM (Prior to examination, patient consented to physical exam, hands were washed and my usual and customary physical exam procedures followed) 1) GENERAL: Well-developed, well-nourished, alert and oriented. Appears to be in no acute distress. Speaking full sentences with no signs of respiratory distress 2) HEAD: Normocephalic, atraumatic 3) HEENT: Pupils equal, round, reactive to light bilaterally. Sclera anicteric. Nasopharynx, oropharynx, clear, no lesions. MoistDry mucous membranes. Ears bilaterally with normal tympanic membranes. 4) NECK: Full range of motion, no meningeal signs. 5) LUNGS: Clear auscultation bilaterally, no wheezes, no rhonchi, no retractions. 6) HEART: Regular rate and rhythm, no murmur, no heave, no gallop. 7) ABDOMEN: No guarding, no rebound, no focal tenderness, negative McBurney's, negative Cullen's, negative Rovsing's, negative peritoneal sign, 8) MUSCULOSKELETAL: Moving all extremities, no focal areas of tenderness, no obvious trauma. No peripheral edema or discoloration. 9) BACK: No CVA tenderness, no midline vertebral tenderness, no fluctuance, no step-off, no obvious trauma, no visual or palpable abnormality. 10) SKIN: No rash, no petechiae. 11) Psychiatric: Patient is oriented X 3, there is no agitation. DIFFERENTIAL DIAGNOSIS: In no particular order including but not limited to PE , pneumonia, bronchitis - Personal History LMP (Females 10-55): Now Tetanus Vaccine Date: 2015 - Medical/Surgical History Hx Asthma: No Hx Chronic Respiratory Disease: No Hx Diabetes: No Hx Cardiac Disease: No Hx Renal Disease: No Hx Cirrhosis: No Hx Alcoholism: No Hx HIV/AIDS: No Hx Splenectomy or Spleen Trauma: No Other PMH: Depression, PTSD, abd surg (double ureter repaired), postural orthostatic tachycardia synd, Beto-Danlos, PCOS, hypothyroid, migraines, RA, POTS - Social History Smoking Status: Never smoked Constitutional: Initial Vital Signs Temperature (C) 37.0 C 09/25/18 11:26 Heart Rate 103 H 09/25/18 11:26 Respiratory Rate 20 09/25/18 11:26 Blood Pressure 138/85 H 09/25/18 11:26 O2 Sat (%) 94 09/25/18 11:26 O2 Delivery Mode Room Air Allergies/Adverse Reactions: gluten Allergy (Verified 07/14/18 09:38) metformin Allergy (Verified 07/14/18 09:38) Vomiting Home Medications: Medication Instructions Recorded lamoTRIgine [Lamictal] 200 mg PO HS 10/21/13 Acet/Caffeine/Buta Fioricet 2 tab PO Q6H PRN 12/04/14 [Fioricet (*)] Diclofenac Sodium [Voltaren 75 MG 75 mg PO BID PRN 12/04/14 (*)] Haloperidol [Haldol 1 MG (*)] 4 - 6 mg PO DAILY PRN 12/04/14 Omeprazole Magnesium [Prilosec Otc] 20 mg PO DAILY 12/04/14 Prazosin HCl [Minipress 5mg (*)] 5 mg PO HS 12/04/14 Tocilizumab [ACTEMRA] 162 mg IV HOPE 12/04/14 LORazepam [Ativan (*)] 1 mg PO TID PRN 03/24/16 Levomefolate/Algal Oil 1 cap PO DAILY 03/24/16 [Deplin-Algal Oil 15 mg Capsule] Loratadine [Claritin 10 mg] 10 mg PO HS 03/24/16 diphenhydrAMINE [Benadryl 50 MG 50 mg PO DAILY PRN 03/24/16 (*)] lamoTRIgine [Lamictal] 150 mg PO HS 03/24/16 Ergocalciferol [Vitamin D2 (*)] 50,000 unit PO TUTH 02/05/17 Levothyroxine [Synthroid 100 mcg 100 mcg PO DAILY06 02/05/17 (*)] Ondansetron Odt [Zofran Odt 4 mg 4 mg PO DAILY PRN 02/05/17 (*)] Prazosin HCl [Minipress] 2 mg PO HS 02/05/17 traMADol [Ultram 50 mg (*)] 50 - 100 mg PO Q6HRS PRN 02/05/17 Ondansetron Odt [Zofran Odt 4 mg 4 mg PO Q4HRS PRN #15 tab 02/08/17 (*)] Ketamine 07/14/18 Methotrexate 07/14/18 Ranitidine HCl [Zantac] 150 mg PO BID #15 tablet 07/14/18 oxyCODONE/APAP 5/325 [Percocet 1 tab PO Q6 #10 tab 07/14/18 5/325] oxyCODONE/APAP 5/325 [Percocet 1 tab PO Q6 #10 tab 07/14/18 5/325] Azithromycin [Zithromax] 500 mg PO DAILY #1 tablet 09/25/18 Benzonatate [Tessalon Pearles (RX)] 200 mg PO TID PRN #15 cap 09/25/18 Medical Decision Making - Diagnostics Imaging Results: Imaging Impressions Chest/Thorax CTA 09/25/18 13:33 Impression: 1. No evidence of pulmonary thromboembolic disease. 2. Clear lungs. No pneumonia or lymphadenopathy. 3. No effusion. 4. Hepatic steatosis is unchanged. Findings discussed with Emergency Department Physician Bioinformatics Programmer, Lg Biswas PA-C, on September 25, 2018 at 1440. Images reviewed myself ED Course/Re-evaluation: 3:00 p.m. re-evaluation. Patient had been given DuoNeb treatment and states that she is feeling significant improvement. I re auscultated her lungs and they remain clear bilaterally, she continues to maintain normal saturations. At this time, I think the patient can be discharged. We discussed providing and dose of Decadron. She has a history of bipolar disorder and states that she did not like the way she felt when she has previously been on steroids. We will therefore hold on oral steroids. Will plan on discharge with prescription for azithromycin as patient is at risk of secondary infection. Also prescribed Tessalon. She already has prescription for acute variant albuterol at home. She feels comfortable being discharged, she would like to be discharged. Breathing comfortably. Patient feels comfortable being discharged. All questions and concerns addressed by myself. Patient given my usual and customary discharge precautions and instructions regarding their clinical impression. Care of patient under supervision of secondary supervising physician Dr Calle with whom I discussed case. - Data Points Laboratory Results: Laboratory Results 09/25/18 12:05 09/25/18 12:05 09/25/18 09/25/18 09/25/18 12:10 12:05 12:05 WBC RBC Hgb Hct MCV MCH MCHC RDW Plt Count MPV Neut % (Auto) Lymph % (Auto) [place] % (Auto) Eos % (Auto) Baso % (Auto) Nucleat RBC Rel Count Absolute Neuts (auto) Absolute Lymphs (auto) Absolute Monos (auto) Absolute Eos (auto) Absolute Basos (auto) Absolute Nucleated RBC Immature Gran % Immature Gran # D-Dimer Sodium 138 mEq/L mEq/L (135-145) Potassium 4.2 mEq/L mEq/L (3.5-5.2) Chloride 104 mEq/L mEq/L (97-110) Carbon Dioxide 23 mEq/l mEq/l (22-31) Anion Gap 11 mEq/L mEq/L (6-14) BUN 15 mg/dL mg/dL (7-23) Creatinine 0.8 mg/dL mg/dL (0.6-1.0) Estimated GFR > 60 Glucose 138 mg/dL H mg/dL (70-100) Calcium 9.0 mg/dL mg/dL (8.5-10.4) POC Troponin I 0.00 ng/mL ng/mL (0.00-0.08) Beta HCG, Qual NEGATIVE 09/25/18 09/25/18 12:05 12:05 WBC 10.68 10^3/uL H 10^3/uL (3.80-9.50) RBC 4.41 10^6/uL 10^6/uL (4.18-5.33) Hgb 13.5 g/dL g/dL (12.6-16.3) Hct 40.8 % % (38.0-47.0) MCV 92.5 fL fL (81.5-99.8) MCH 30.6 pg pg (27.9-34.1) MCHC 33.1 g/dL g/dL (32.4-36.7) RDW 13.0 % % (11.5-15.2) Plt Count 212 10^3/uL 10^3/uL (150-400) MPV 9.9 fL fL (8.7-11.7) Neut % (Auto) 74.8 % H % (39.3-74.2) Lymph % (Auto) 13.5 % L % (15.0-45.0) [place] % (Auto) 10.4 % % (4.5-13.0) Eos % (Auto) 0.5 % L % (0.6-7.6) Baso % (Auto) 0.4 % % (0.3-1.7) Nucleat RBC Rel Count 0.0 % % (0.0-0.2) Absolute Neuts (auto) 8.00 10^3/uL H 10^3/uL (1.70-6.50) Absolute Lymphs (auto) 1.44 10^3/uL 10^3/uL (1.00-3.00) Absolute Monos (auto) 1.11 10^3/uL H 10^3/uL (0.30-0.80) Absolute Eos (auto) 0.05 10^3/uL 10^3/uL (0.03-0.40) Absolute Basos (auto) 0.04 10^3/uL 10^3/uL (0.02-0.10) Absolute Nucleated RBC 0.00 10^3/uL 10^3/uL (0-0.01) Immature Gran % 0.4 % % (0.0-1.1) Immature Gran # 0.04 10^3/uL 10^3/uL (0.00-0.10) D-Dimer 0.31 ug/mLFEU ug/mLFEU (0.00-0.50) Sodium Potassium Chloride Carbon Dioxide Anion Gap BUN Creatinine Estimated GFR Glucose Calcium POC Troponin I Beta HCG, Qual Medications Given: Discontinued Medications Albuterol/Ipratropium (Duoneb) 3 ml IH EDNOW ONE Stop: 09/25/18 13:34 Last Admin: 09/25/18 13:40 Dose: 3 ml Point of Care Test Results: Chemistry 09/25/18 12:10 POC Troponin I 0.00 ng/mL ng/mL (0.00-0.08) Departure - Departure Disposition: Home, Routine, Self-Care Clinical Impression: Cough Instructions: Acute Cough (ED), How Your Lungs Work (ED) Additional Instructions: . Return to the emergency department immediately for change in breathing habits , change in voice, change in swallowing habits, change in mental status, or any other symptoms that concern you. Referrals: Odessa Vázquez MD [Primary Care Provider] - 1-2 days without fail Prescriptions: Azithromycin [Zithromax] 500 mg PO DAILY #1 tablet Benzonatate [Tessalon Pearles (RX)] 200 mg PO TID PRN #15 cap PRN Reason: Cough, Moderate
[2018-09-25] MEDS ORDERED: IPRATROPIUM/ALBUTEROL 3 ML DEYVIAL IH ONE (13:33)
[2018-09-25] MEDS ORDERED: IOPAMIDOL (ISOVUE 370) 100 ML BTL IV ONE (13:41)
[2018-09-25 15:15] VITALS: BP 114/76
--- NOTE | 2018-09-25 15:16 | CPEKG ---
Test Reason : OPEN Blood Pressure : / mmHG Vent. Rate : 093 BPM Atrial Rate : 093 BPM P-R Int : 143 ms QRS Dur : 081 ms QT Int : 368 ms P-R-T Axes : 009 017 025 degrees QTc Int : 458 ms Sinus rhythm LVH by voltage Confirmed by Sandra Calle ([id number]) on 09/25/2018 3:16:17 PM Referred By: SANDRA CALLE Confirmed By:Sandra Calle
== END 2018-09-25 15:14 | disposition home or self-care (01) ==
DX: R05 Cough (principal); R06.00 Dyspnea, unspecified; K76.0 Fatty (change of) liver, not elsewhere classified
CPT/HCPCS: 84484-ER; Q9967